=== PATIENT | female | born 1980 | race Hispanic/Latino ===

== ENCOUNTER → 2018-02-10 | Outpatient (CLI) | payer MEDICARE | END | disposition home or self-care (01) | LOC: OIH 16:12 | PROVIDERS: ATTEND Family Medicine | DX: M47.897 Other spondylosis, lumbosacral region (principal) | CPT/HCPCS: 72100 ==

== ENCOUNTER → 2018-03-17 | Outpatient (CLI) | payer MEDICARE | END | disposition home or self-care (01) | LOC: OIH 15:19 | PROVIDERS: ATTEND Family Medicine | DX: M25.571 Pain in right ankle and joints of right foot (principal) | CPT/HCPCS: 73610 ==

== ENCOUNTER → 2018-10-05 | Outpatient (CLI) | payer OTHER, MEDICARE | END | disposition home or self-care (01) | LOC: RAH 15:19 | PROVIDERS: ATTEND Family Medicine | DX: Z12.31 Encounter for screening mammogram for malignant neoplasm of breast (principal) | CPT/HCPCS: 77067 ==

== ENCOUNTER → 2019-11-13 | Outpatient (CLI) | payer OTHER, MEDICARE | END | disposition home or self-care (01) | LOC: RAH 14:20 | PROVIDERS: ATTEND Family Medicine | DX: Z12.31 Encounter for screening mammogram for malignant neoplasm of breast (principal) | CPT/HCPCS: 77067 ==

== ENCOUNTER → 2020-12-18 | Outpatient (CLI) | payer OTHER, MEDICARE | END | disposition home or self-care (01) | LOC: RAH 07:53 | PROVIDERS: ATTEND Family Medicine | DX: Z12.31 Encounter for screening mammogram for malignant neoplasm of breast (principal); N64.89 Other specified disorders of breast | CPT/HCPCS: 77067 ==

== ENCOUNTER → 2021-03-03 | Outpatient (CLI) | payer OTHER, MEDICARE | END | disposition home or self-care (01) | LOC: RAH 13:17 | PROVIDERS: ATTEND Family Medicine | DX: N63.10 Unspecified lump in the right breast, unspecified quadrant (principal); N63.41 Unspecified lump in right breast, subareolar | CPT/HCPCS: 76641 ==

== ENCOUNTER → 2023-02-08 | Outpatient (CLI) | payer OTHER, MEDICARE | END | disposition home or self-care (01) | LOC: RAH 14:39 | PROVIDERS: ATTEND Family Medicine | DX: Z12.31 Encounter for screening mammogram for malignant neoplasm of breast (principal) | CPT/HCPCS: 77067 ==

== ENCOUNTER → 2023-05-24 | Outpatient (CLI) | payer OTHER, MEDICARE | END | disposition home or self-care (01) | LOC: RAH 13:52 | PROVIDERS: ATTEND Family Medicine | DX: N60.01 Solitary cyst of right breast (principal); R92.8 Other abnormal and inconclusive findings on diagnostic imaging of breast ==

== ENCOUNTER 2023-12-15 07:33 | Day surgery (SDC) | payer OTHER, MEDICARE ==
[~2023-12-15] VITALS: Ht 160 cm; Wt 65.3 kg
[2023-12-15] VITALS (12 sets, daily range): BP systolic 102–127; BP diastolic 61–84; PULSE 57–69; RESP 14–16
[~2023-12-15 07:33] MED LIST: CARB200T6 PO; LEVO25CA4 PO; SERT-438 PO; SERT-440 PO; TRAZ-185 PO; VALP250C3 PO
[2023-12-15] MEDS ORDERED: VALP250C3 PO ×2 (08:02)
[2023-12-15] MEDS: 0.9%NACL 1000ML 1,000 ML IV ONE (09:16)
[2023-12-15] MEDS ORDERED: PROPOFOL 10 MG/ML 20ML VIAL IV ONE (10:26)
== END 2023-12-15 12:10 | disposition home or self-care (01) ==
LOC: DAH 07:33 → ENDO 07:33
PROVIDERS: ATTEND Internal Medicine Gastroenterology
DX: Z12.11 Encounter for screening for malignant neoplasm of colon (principal); D12.2 Benign neoplasm of ascending colon; K64.4 Residual hemorrhoidal skin tags; K64.0 First degree hemorrhoids; K31.89 Other diseases of stomach and duodenum; K29.50 Unspecified chronic gastritis without bleeding; K44.9 Diaphragmatic hernia without obstruction or gangrene; K21.9 Gastro-esophageal reflux disease without esophagitis; K59.01 Slow transit constipation; K64.9 Unspecified hemorrhoids; F32.A Depression, unspecified; F41.9 Anxiety disorder, unspecified; D13.1 Benign neoplasm of stomach; E03.9 Hypothyroidism, unspecified; G91.9 Hydrocephalus, unspecified; K80.20 Calculus of gallbladder without cholecystitis without obstruction; R56.9 Unspecified convulsions; Z82.49 Family history of ischemic heart disease and other diseases of the circulatory system; Z79.890 Hormone replacement therapy; Z90.49 Acquired absence of other specified parts of digestive tract; Z98.890 Other specified postprocedural states
CPT/HCPCS: 43239; 45380; J7030 ×2; J2704; A4620; A4215 ×2; A4223; A7002; A4222; A4221; A4663; A4606; 45385; J3490

== ENCOUNTER → 2024-02-10 | Outpatient (CLI) | payer OTHER, MEDICARE | END | disposition home or self-care (01) | LOC: RAH 08:10 | PROVIDERS: ATTEND Family Medicine | DX: Z12.31 Encounter for screening mammogram for malignant neoplasm of breast (principal) | CPT/HCPCS: 77067 ==

== ENCOUNTER → 2025-02-13 | Outpatient (CLI) | payer OTHER, MEDICARE ==
[~2025-02-13] MED LIST changes: -LEVO25CA4 PO; +LEVO25CA5 PO
--- NOTE | 2025-02-13 08:57 | HMCIMG ---
MAMMO SCREENING BILATERAL HISTORY: Screening mammogram. COMPARISON: 02/10/2024 TECHNIQUE: Bilateral screening mammogram with CAD was performed with craniocaudal and mediolateral oblique projections. FINDINGS: The breasts are extremely dense which lowers the sensitivity of mammogram. There is no evidence of a dominant mass, or suspicious microcalcification. There is no evidence of nipple retraction or skin thickening. IMPRESSION: 1. Stable mammogram. Patient was entered into a reminder system with a target due date for their next mammogram. BI-RADS: CATEGORY 2: BENIGN FINDINGS Recommend monthly self breast exam as well as annual clinical examination. A negative x-ray should not delay biopsy if a dominant or clinically suspicious mass is present, since 8-10% of cancers are not identified by mammography. Dense breasts particularly, may obscure an underlying neoplasm. Some of these may be detected clinically and therefore, clinical examination is an essential part of breast evaluation.
== END | disposition home or self-care (01) ==
LOC: RAH 08:00
PROVIDERS: ATTEND Family Medicine
DX: Z12.31 Encounter for screening mammogram for malignant neoplasm of breast (principal); R92.343 Mammographic extreme density, bilateral breasts
CPT/HCPCS: 77067

== ENCOUNTER 2025-06-18 16:30 | Emergency (ER) | payer OTHER, MEDICAID ==
[~2025-06-18] VITALS: Ht 160 cm; Wt 62.6 kg
[~2025-06-18 16:30] MED LIST changes: +CARB-225 PO; -CARB200T6 PO
[2025-06-18 18:28] LABS: IMMATURE GRANULOCYTE ABSOLUTE 0.03 K/uL (0-1); NUCLEATED RED BLOOD CELLS 0.0 % (0.0-0.19); PLATELET COUNT (AUTO) 267 K/uL (130-400); RED BLOOD CELL COUNT(AUTO) 4.35 MIL/uL (4.00-5.50); RED CELL DISTRIBUTION WIDTH 12.4 % (11.0-15.5); WHITE BLOOD COUNT (AUTO) 14.1 K/uL (4.8-10.8)
[2025-06-18 18:50] LABS: CREATININE 0.5 mg/dL (0.5-1.0); GLOMERULAR FILTR. RATE CALC 117.0 mL/min (>90); GLUCOSE,RANDOM 98.0 mg/dL (70-105); SODIUM SERUM 135.0 mmol/L (136-145); UREA NITROGEN, BLOOD 6.0 mg/dL (7-18)
--- NOTE | 2025-06-18 19:12 | NUR ---
PT CARE ASSUMED AT THIS TIME
--- NOTE | 2025-06-18 19:27 | ERN ---
ED Note History of Present Illness Stated Complaint: TROUBLE SWALLOWING, SORE THROAT Chief Complaint: Difficulty Swallowing Time Seen by MD: 17:06 Time Seen by Midlevel: 17:06 Dictation: The patient is a 44-year-old female with a history of hydrocephalus with a GUN TESTER shunt, seizures who presents to the emergency department with mother with complaints of sore throat and unable to swallow onset yesterday. Per mother patient has not been wanting to eat and has not taking her any of her medications for seizures. Mother denies any nausea or vomiting, denies any fevers, denies any cough. Per mother patient has been evaluated at an urgent care where she was treated for throat infection. Mother reports that patient had a fall on the 12 of June but she denies any LOC, nausea or vomiting, denies any recent seizures. Allergies: Coded Allergies: No Known Drug Allergies (Unverified Allergy, Unknown, 12/15/23) Home Meds Reported Medications Valproic Acid (Valproic Acid) 250 Mg Capsule, 500 MG PO DAILY, CAP 12/15/23 Valproic Acid (Valproic Acid) 250 Mg Capsule, 250 MG PO BIDLUNCHDINNER, CAP 12/15/23 Trazodone HCl (Trazodone HCl) 50 Mg Tablet, 50 MG PO HS, TAB 12/14/23 Sertraline HCl (Sertraline HCl) 100 Mg Tablet, 100 MG PO DAILYDINNER, TAB 12/14/23 Sertraline HCl (Sertraline HCl) 25 Mg Tablet, 25 MG PO DAILY, TAB 12/14/23 Carbamazepine (Carbamazepine) 200 Mg Tablet, 200 MG PO TID, TAB 12/14/23 Levothyroxine Sodium (Levothyroxine) 25 Mcg Capsule, 25 MCG PO DAILY, CAP 12/14/23 Past Medical History Past Medical History: Seizure Additional Past Medical Hx: GASTRITIS, NON VERBAL Surgical History: Cholecystectomy, Other Surgical History Other: SHUNT RN Note Reviewed/Agreed w/PFSH: Yes Review of System Dictation Constitutional: Negative for fever,chills, and weight loss Eyes: Negative for injury, pain,redness, and discharge ENT: Positive for sore throat Cardiovascular: Negative for chest pain, palpitations, and edema Respiratory: Negative for shortness of breath, cough, and wheezing, Abdomen/GI: Negative for abdominal pain, nausea, vomiting, diarrhea, and consti pation Back: Negative for injury and pain : Negative for injury, bleeding and discharge MS/Extremity: Negative for injury and deformity Skin: Negative for rash, and discoloration Neuro: Negative for headache, weakness, numbness, tingling, and seizure Psych: Negative for suicide ideation, homicidal ideation, and hallucinations Initial Vital Sign VS Vital Signs Date Time Temp Pulse Resp B/P (MAP) Pulse Ox O2 Delivery O2 Flow Rate FiO2 06/18/25 16:33 98.2 93 20 128/70 95 Room Air 0 06/18/25 17:13 21 Physical Exam Dictation Vital Signs reviewed General Appearance: Alert, no acute distress, well developed, nourished. Head and Face: non-traumatic. Eyes: PERRL, pink conjunctivas, eyelid no trauma, anterior chamber with arcus senilis. Ears: Pinnas intact and no signs of trauma or erythema ear canals clear and no discharge TM no erythema Nose: No discharge, no bleeding. Oropharynx: Mouth normal, tongue pink. No neck swelling pharynx clear,+ erythema, tonsils no exudates, no abscesses noted, mucous membrane moist Neck: Supple, non-tender, no thyromegaly, no masses, no JVD, no bruits Breast:Deferred Chest:No tenderness, no crepitus, no paradoxical movement, no retractions Lungs:Clear, well-ventilated, symmetric, no rales, no wheezing, no rhonchi, no stridor, good breath sounds bilaterally Heart: Regular rate, regular rhythm, no murmur, no gallops Vascular: no peripheral edema, Abdomen: Soft, positive bowel sounds, nondistended, no guarding, nontender, no rebound, no masses no hepatomegaly, no splenomegaly, no Ruiz's sign, no hernias. Rectal: Deferred Genital: Deferred Neurological: motor function intact, sensory function intact Musculoskeletal: Neck nontender, full range of motion, back nontender, full range of motion, Extremities: nontender, full range of motion Skin: Color pink, dry, no turgor, no rash, no lacerations, no abrasions, no contusions. Lymphatic: Deferred Results (Laboratory/Radiology) Laboratory/Radiology Laboratory Tests Test 06/18/25 18:16 06/18/25 19:20 White Blood Count 14.1 K/uL (4.8-10.8) H Red Blood Count 4.35 MIL/uL (4.00-5.50) Hemoglobin 14.2 g/dL (12.0-16.0) Hematocrit 41.2 % (36-48) Mean Corpuscular Volume 94.7 fL (79-99) Mean Corpuscular Hemoglobin 32.6 pg (27.0-33.0) Mean Corpuscular Hemoglobin Concent 34.5 g/dL (32.0-36.0) Red Cell Distribution Width 12.4 % (11.0-15.5) Platelet Count 267 K/uL (130-400) Mean Platelet Volume 9.1 fL (7.5-10.5) Immature Granulocyte % (Auto) 0.2 % (0-1) Neutrophils (%) (Auto) 83.0 % (40.0-77.0) H Lymphocytes (%) (Auto) 10.4 % (21.0-51.0) L Monocytes (%) (Auto) 6.1 % (3.0-13.0) Eosinophils (%) (Auto) 0.1 % (0.0-8.0) Basophils (%) (Auto) 0.2 % (0.0-5.0) Neutrophils # (Auto) 11.7 K/uL (1.8-7.7) H Lymphocytes # (Auto) 1.5 K/uL (1.0-4.8) Monocytes # (Auto) 0.9 K/uL (0.1-1.0) Eosinophils # (Auto) 0.01 K/uL (0.00-0.70) Basophils # (Auto) 0.03 K/uL (0.00-0.20) Absolute Immature Granulocyte (auto 0.03 K/uL (0-1) Nucleated Red Blood Cells 0.0 % (0.0-0.19) Sodium Level 135 mmol/L (136-145) L Potassium Level 3.7 mmol/L (3.5-5.1) Chloride Level 96 mmol/L (101-111) L Carbon Dioxide Level 30 mmol/L (21-32) Blood Urea Nitrogen 6 mg/dL (7-18) L Creatinine 0.5 mg/dL (0.5-1.0) Glomerular Filtration Rate Calc 117 mL/min (>90) Random Glucose 98 mg/dL (70-105) Total Calcium 9.5 mg/dL (8.5-10.1) Serum Test, Qualitative NEGATIVE (NEGATIVE) Influenza Type A Antigen Negative For Type A Influenza Type B Antigen Negative For Type B SARS-CoV-2 Antigen (Rapid) PRESUMPTIVE NEGATIVE Group A Streptococcus Rapid negative (NEGATIVE) REASON: dysphagia ORDERING PHYSICIAN: KIMMY ZHENG PROCEDURE: NKSOFTI WO - CT NECK SOFT TISS W/O CONTRAST EXAM: CT Neck Without IV contrast. CLINICAL HISTORY: Dysphagia. TECHNIQUE: Axial computed tomography images of the neck without intravenous contrast. Sagittal and coronal reformatted images were generated. CONTRAST: None. COMPARISON: None provided. FINDINGS: PHARYNX: The nasopharynx, oropharynx, and hypopharynx are unremarkable. No pharyngeal mucosal-based lesions. LARYNX: The larynx is unremarkable. Normal epiglottis. RETROPHARYNGEAL SPACE: No retropharyngeal soft tissue swelling or gas. SALIVARY GLANDS: There is a mildly bulky right submandibular gland with moderate surrounding soft tissue fat stranding and thickening of the platysma. No collection. The parotid, left submandibular, and sublingual glands are unremarkable. There is a ventricular drain on the right side of the neck. There is another interrupted drain in the right side of the neck, with the proximal end terminating in the posterior aspect of the mid aspect of the neck. The visualized brain parenchyma shows hypodensities in both frontal lobes, likely encephalomalacia with gliosis. LYMPH NODES: There are multiple subcentimetric reactive bilateral submandibular, level II, and level III cervical lymph nodes, the largest measuring 0.8 cm in short axis diameter. THYROID: The thyroid gland is unremarkable. No nodule. BONES: There is diffuse widening of the diploic spaces of the visualized skull bones. Hyperostosis frontalis interna. Moderate multilevel degenerative changes of the spine. Mild dextrocurvature of the cervical spine. No acute osseous abnormality. IMPRESSION: Mildly bulky right submandibular gland with moderate surrounding fat stranding and mild thickening of the platysma may represent sialoadenitis. Recommend ultrasound correlation. /[facility] Reviewed?: Yes ED Course ED Course Orders Procedure Category Date Status Time Cbc With Differential LAB 06/18/25 Complete 17:33 Basic Metabolic Panel LAB 06/18/25 Complete 17:33 Testing, LAB 06/18/25 Complete Serum Hcg 17:33 Covid19 (Sars Antigen LAB 06/18/25 Complete Rapid) 17:33 Rapid (Group A Strep) LAB 06/18/25 Complete 17:33 Influenza Type A & B, LAB 06/18/25 Complete Rapid 17:33 Urinalysis Profile LAB 06/18/25 Logged 18:33 Ct Neck Soft Tiss W/O CT 06/18/25 Resulted Contrast 19:42 0.9%Nacl 1000ml (Ns PHA 06/18/25 Complete 1000ml) 20:00 Ceftriaxone 1g Vial PHA 06/18/25 Complete (Rocephine 1g Inj) 22:00 Mumps Virus Igg LAB 06/18/25 Logged Antibody 21:31 Us Soft Tissue Neck US 06/18/25 Taken 21:33 Current Medications Medications (Trade) Dose Ordered Sig/Tony Route PRN Reason Start Time Stop Time Status Last Admin Dose Admin Ceftriaxone Sodium (ROCEphine 1G INJ) 1 gm ONCE ONCE IVPB 06/18/25 22:00 06/18/25 22:01 DC Sodium Chloride 1,000 ml @ 0 mls/hr ONCE ONCE IV 06/18/25 20:00 06/18/25 20:01 DC 06/18/25 20:14 Vital Signs Date Time Temp Pulse Resp B/P (MAP) Pulse Ox O2 Delivery O2 Flow Rate FiO2 06/18/25 19:23 99.5 86 15 116/61 95 Room Air* 0 21 06/18/25 17:13 99.9 88 17 120/72 97 Room Air* 0 06/18/25 16:33 98.2 93 20 128/70 95 Room Air 0 Medical Decision Making MDM The patient is a 44-year-old female with a history of hydrocephalus with a GUN TESTER shunt, seizures who presents to the emergency department with mother with complaints of sore throat and unable to swallow onset yesterday. Per mother patient has not been wanting to eat and has not taking her any of her medicat ions for seizures. Mother denies any nausea or vomiting, denies any fevers, denies any cough. Per mother patient has been evaluated at an urgent care where she was treated for throat infection. Mother reports that patient had a fall on the 12 of June but she denies any LOC, nausea or vomiting, denies any recent seizures. CBC showed mild leukocytosis. No anemia, chemistry showed mild hyponatremia, hypochloremia, creatinine of 0.5, negative , serology negative. CT soft tissue neck showed mildly focal right submandibular gland with moderate surrounding fat stranding and mouth thickening which could represent sialoadenitis. No abscess. Patient able to tolerate fluids. No signs of chocking with fluids. patient with stable vitals signs. we will discharge to follow up with PCP. Differential diagnosis: Pharyngitis, electrolyte imbalance, dehydration, upper respiratory infection Need for hospitalization: Patient does not meet criteria for hospitalization. There are no social concerns with this patient. DX & DISP Disposition: Discharge Departure Impression: Primary Impression: Sialadenitis Additional Impression: Lymphadenitis Condition: Stable Scripts Amoxicillin/Potassium Clav (Amox Tr-K Clv 875-125 mg Tab) 875 Mg-125 Mg Tablet 1 TAB PO BID for 10 Days, #20 TAB 0 Refills Prov: KIMMY ZHENG 06/18/25 Additional Instructions: Please follow up with your primary doctor in 1-2 days. Continue oral antibiotics as prescribed. If anything worsens please return to ER. FOLLOW-UP WITH PRIMARY CARE PROVIDER IN 1 TO 2 DAYS. TAKE MEDICATIONS DIRECTED HERE IN THE EMERGENCY ROOM. OKAY TO CONTINUE HOME MEDICATIONS UNLESS OTHERWISE DISCUSSED DURING YOUR VISIT IN THE EMERGENCY ROOM TODAY. RETURN TO YOUR NEAREST EMERGENCY ROOM IF SYMPTOMS WORSEN OR IF THERE IS NO IMPROVEMENT. CALL 911 IF YOU NEED IMMEDIATE ASSISTANCE. TAKE TYLENOL [id number] NEEDED AND IF NO CONTRAINDICATIONS ARE PRESENT. INCREASE ORAL HYDRATION. A WOUND CULTURE OR URINE CULTURE WAS ORDERED HERE IN THE EMERGENCY ROOM DEPARTMENT PLEASE FOLLOW-UP WITH PRIMARY CARE PROVIDER AND ADVISE THEM TO GET REPEAT PORTS FROM OUR FACILITY. IF YOU HAD ANY MISSAEL WRAP/SPLINTS THAT WERE APPLIED HERE, PLEASE DO NOT REMOVE THEM UNTIL YOU SEE YOUR PRIMARY CARE OR SPECIALTY. Referrals: ADAM DOMÍNGUEZ MD (PCP) Time of Disposition: 22:21 I have examined patient, & reviewed all documents, & agreed W/ the Diagnosis, and Plan KIMMY ZHENG Jun 18, 2025 19:26
[2025-06-18 19:38] LABS: RAPID GROUP A STREP negative (NEGATIVE)
[2025-06-18 19:48] LABS: COVID19 (SARS ANTIGEN RAPID) PRESUMPTIVE NEGATIVE (NEGATIVE); INFLUENZA TYPE A Negative For Type A (NEGATIVE); INFLUENZA TYPE B Negative For Type B (NEGATIVE)
[2025-06-18] MEDS: 0.9%NACL 1000ML 1,000 ML IV ONE (20:14)
--- NOTE | 2025-06-18 21:18 | HMCIMG ---
EXAM: CT Neck Without IV contrast. CLINICAL HISTORY: Dysphagia. TECHNIQUE: Axial computed tomography images of the neck without intravenous contrast. Sagittal and coronal reformatted images were generated. CONTRAST: None. COMPARISON: None provided. FINDINGS: PHARYNX: The nasopharynx, oropharynx, and hypopharynx are unremarkable. No pharyngeal mucosal-based lesions. LARYNX: The larynx is unremarkable. Normal epiglottis. RETROPHARYNGEAL SPACE: No retropharyngeal soft tissue swelling or gas. SALIVARY GLANDS: There is a mildly bulky right submandibular gland with moderate surrounding soft tissue fat stranding and thickening of the platysma. No collection. The parotid, left submandibular, and sublingual glands are unremarkable. There is a ventricular drain on the right side of the neck. There is another interrupted drain in the right side of the neck, with the proximal end terminating in the posterior aspect of the mid aspect of the neck. The visualized brain parenchyma shows hypodensities in both frontal lobes, likely encephalomalacia with gliosis. LYMPH NODES: There are multiple subcentimetric reactive bilateral submandibular, level II, and level III cervical lymph nodes, the largest measuring 0.8 cm in short axis diameter. THYROID: The thyroid gland is unremarkable. No nodule. BONES: There is diffuse widening of the diploic spaces of the visualized skull bones. Hyperostosis frontalis interna. Moderate multilevel degenerative changes of the spine. Mild dextrocurvature of the cervical spine. No acute osseous abnormality. IMPRESSION: Mildly bulky right submandibular gland with moderate surrounding fat stranding and mild thickening of the platysma may represent sialoadenitis. Recommend ultrasound correlation. /Carly
[2025-06-18] MEDS ORDERED: AMOX1TAB16 PO (22:23)
--- NOTE | 2025-06-18 23:05 | HMCIMG ---
EXAM: US examination, right submandibular area. CLINICAL HISTORY: Dysphagia. TECHNIQUE: Real-time ultrasound examination performed with image documentation. COMPARISON: None. ANATOMICAL SITE EVALUATED: Right submandibular area. FINDINGS: The largest lymph node measures approximately 10 ??? 5 ??? 7 mm. The right submandibular gland appears more prominent than the left. Shunt seen. IMPRESSION: Mildly enlarged right submandibular gland, concerning mild sialadenitis. Subcentimeter lymphadenopathy. /Carly
[2025-06-18 23:08] VITALS: BP 120/64; PULSE 85; RESP 16; TEMP 98.9; O2SAT 96
== END 2025-06-18 23:12 | disposition home or self-care (01) ==
LOC: EDH 16:30
DX: K11.20 Sialoadenitis, unspecified (principal); I88.9 Nonspecific lymphadenitis, unspecified; Z79.890 Hormone replacement therapy; Z79.899 Other long term (current) drug therapy; Z90.49 Acquired absence of other specified parts of digestive tract; Z20.822 Contact with and (suspected) exposure to COVID-19
CPT/HCPCS: 99285; 96365; 70490; 96361; 87426; 80048; 84703; 85025; 87880; 87804 ×2; 86735; 36415; 76536; J7030; J0696